=== PATIENT | male | born 1955 | race Caucasian/White ===

== ENCOUNTER → 2020-10-20 | Outpatient (CLI) | payer MEDICARE, BC ==
[2020-10-21 12:14] LABS: RHEUMATOID ARTHRITIS FACTOR 20.7 IU/mL (0.0-13.9)
== END ==
LOC: LAB 10:26
PROVIDERS: Nurse Practitioner Family
DX: M25.50 Pain in unspecified joint (principal)
CPT/HCPCS: 36415; 83520; 85652; 86140; 86200; 86431

== ENCOUNTER → 2021-09-26 | Outpatient (CLI) | payer MEDICARE, BC | LOC: EROP 15:18 | DX: U07.1 COVID-19 (principal); I10 Essential (primary) hypertension; R76.8 Other specified abnormal immunological findings in serum | CPT/HCPCS: M0222; Q0222 ==